=== PATIENT | female | born 1985 | race African-American/Black ===

== ENCOUNTER 2017-11-10 01:04 | Emergency (ER) | payer OTHER ==
[~2017-11-10] VITALS: Ht 170.2 cm; Wt 61.0 kg
[2017-11-10 03:11] VITALS: BP 137/82
== END 2017-11-10 06:15 | disposition left against medical advice (07) ==
LOC: ER 01:36
DX: R09.89 Other specified symptoms and signs involving the circulatory and respiratory systems (principal); Z53.21 Procedure and treatment not carried out due to patient leaving prior to being seen by health care provider